=== PATIENT | male | born 1990 | race Caucasian/White ===

== ENCOUNTER 2024-01-26 18:44 | Emergency (ER) | payer BC ==
[2024-01-26 18:52] VITALS: BP 119/80; PULSE 89; RESP 18; TEMP 98.2; BMI 27.7
== END 2024-01-26 21:00 | disposition home or self-care (01) ==
LOC: JERFT 18:44
DX: S93.122A Dislocation of metatarsophalangeal joint of left great toe, initial encounter (principal); W21.4XXA Striking against diving board, initial encounter
CPT/HCPCS: 73630-TC-LT; 99283-25